=== PATIENT | female | born 1970 | race Caucasian/White ===

== ENCOUNTER 2018-08-27 12:15 | Outpatient (REF) | payer OTHER, SELFPAY ==
[2018-08-28 13:15] LABS: Chlamydia Result Negative; GC Result Negative; Specimen Description URINE
== END 2018-08-27 12:35 ==
LOC: NCHCN 12:15
PROVIDERS: Visit Provider Nurse Practitioner
DX: Z72.51 High risk heterosexual behavior (principal); Z11.3 Encounter for screening for infections with a predominantly sexual mode of transmission
CPT/HCPCS: 87491; 87591

== ENCOUNTER 2018-12-07 07:21 | Day surgery (SDC) | payer OTHER, SELFPAY ==
[2018-12-07 07:23] VITALS: BP 116/72; PULSE 53; RESP 16; TEMP 35.8; O2SAT 100
[2018-12-07] MEDS: Lactated Ringers 1,000 ML 80 ML IV ×2 (07:55→11:16)
[2018-12-07] MEDS: ceFAZolin 1 GM/50 ML BAG IVPB (08:59)
[2018-12-07] MEDS: Bupivacaine 0.5% Pres-Free 30 ML VIAL (09:08)
[2018-12-07] MEDS: Lidocaine 1% Pres-Free 5 ML VIAL (09:08)
--- NOTE | 2018-12-07 09:34 | SOFT_PTH ---
PATIENT: DELIA BEAR LOC: DEV U#:[id number] AGE/SX: 48/F ROOM: RE12/07/[address]: Kirit Kirkland : 1970 BED: DIS: 12/07/2018 SPEC #: [id number] RECD: 12/07/18 12:56 STATUS: SHARRI ZEPEDA #: [id number] ELSA: 12/07/18 09:[address]: Kirit Kirkland DEPT: Surgical Specimen RECD BY: Barbara Oreilly ENTERED: 12/07/18 12:57 SP TYPE: SOFT OTHR DR: Mayelin Hammond Tissues: 1 - SOFT TISSUE MASS(BX SIMPLE) Procedures: GROSS AND MICRO LEVEL 5 Comments: [id number]
[2018-12-07] MEDS: Dexamethasone 4 MG/ML VIAL (10:04)
--- NOTE | 2018-12-07 10:18 | W.PM.DSUDISC ---
Discharge Plan Disposition Patient Disposition: HOME Condition: Good Discharge Details Reason For Visit: EXCISION MASS (L) Attending Provider: Kirit Kirkland Primary Care Provider: Mayelin Hammond Home Meds and New Rx's Prescriptions: Continued sertraline 100 mg Tablet 100 mg PO DAILY RF: 0 Centrum Women 18-400 mg-mcg Tablet 1 tab PO DAILY RF: 0 Discharge Instructions Stand Alone Forms: Isael's Instructions-DSU, Tashi Jones (DSU) Activity:: Activity as Tolerated Remove Dressings/Wound Care:: Do Not Remove Shower/Bathe:: Cover Diet:: As Tolerated Discharge Orders Discharge Orders: Discharge Order (Routine); Ordered 12/07/18 Ordered By: Kirit Kirkland Other Ambulatory Orders: Ibuprofen (Routine) Location: Laboratory Nonpatient Ordered By: Kirit Kirkland DS: Diagnosis Discharge Diagnosis (1) Bunionette of left foot: Status: Acute
[2018-12-07 11:23] VITALS: BP 99/58; PULSE 53; RESP 18; TEMP 36.4; O2SAT 100
--- NOTE | 2018-12-07 12:07 | ROE_ITS ---
DATE OF PROCEDURE: December 07, 2018 PREOPERATIVE DIAGNOSES: 1. Soft tissue mass fifth MPJ region of the left foot. 2. Bunionette deformity left foot. POSTOPERATIVE DIAGNOSES: Same. PROCEDURE: 1. Excision soft tissue mass fifth MPJ left foot. 2. Exostectomy fifth metatarsal head. SURGEON: Kirit Kirkland D.P.M. ANESTHESIA: OPERATIVE INDICATIONS: 48-year-old female with increasing pain associated with chronic enlargement s urrounding the fifth MPJ with exostosis formation noted over the fifth metatarsal head. The mass is very large, made it difficult to wear shoes, ambulate, interfering with daily activities and she is o pting for surgical intervention. She is fully aware of the potential for pain, scarring, infection, recurrence of the mass, numbness or vascular embarrassment to the fifth toe. All questions have been answered. Informed consent has been obtained. No promises are made to the final outcome of surgery . REPORT OF OPERATION: Linda was brought to the operative suite, placed in the supine position, where the left foot is prepped and draped in the usual sterile podiatric fashion. Anesthesia being obtaine d, the left foot was exsanguinated; a well-padded ankle tourniquet inflated 250 mmHg. Attention was directed to the lateral aspect of the fifth MPJ where a 3 cm incision was made starting at the base of the proximal phalanx and extending proximally. The incision was deepened in controll ed depth fashion; hemostasis acquired through electrocautery. The soft tissue mass was fairly adhere nt to the deep surface of the skin. With blunt dissection, I removed the mass from the overlying ski n structures. The mass was generally solid with some small areas that appeared to be slightly gelati nous. It was non-pulsatile. The mass was dissected distally and dorsally and released from the kristine rounding tissues. It was retracted out of the wound and it's noted to be coming from the inferior si de of the fifth metatarsal proximal to the joint. Dissection was further carried down proximally, re leasing the mass; stalk had a translucent appearance; unclear if it was coming from a tendon sheath o r a nerve tissue; nevertheless this was dissected as proximal as I could get it. It was severed and removed from the wound. It was sent to Pathology. Inspection of the base of the wound and periphery failed to reveal any additional pathologic structures. Attention was now directed to the fifth MPJ. The joint was incised along its dorsal lateral edge; th e joint capsule reflected. The fifth metatarsal head was inspected. Hypertrophy along the lateral a spect was appreciated, consistent with preoperative findings of exostosis. With power instrumentatio n the lateral portion of the fifth metatarsal head was resected. All rough and bony edges were raspe d smooth. Copious irrigation was performed. There was no pathology found at this level. The joint capsule was repaired with simple interrupted suture #3-0 Vicryl. The deep layers were repaired with simple interrupted suture #3-0 Vicryl. The subcuticular layer was repaired with simple interrupted s uture #4-0 Vicryl. There was a significant amount of redundant skin. Allis clamps were applied to t he superior or dorsal portion of the skin, which would be the thinner layer of skin, and I resected a pproximately 3 to 4 mm of skin. This was subsequently brought back together and the skin edges were relaxed and in good position. The skin was closed with a combination of simple interrupted suture wi th horizontal mattress suture. Four milligrams of Dexamethasone Phosphate was then infused deeply in to the wound. Xeroform, gauze fluff compression dressings reapplied. The tourniquet was released at 53 minutes with vascularity returning immediately to all toes. Anesthesia was eventually reversed. Linda left the OR with vital signs stable, vascular status intact. Sharp and sponge counts were cor rect. She will be followed by me in the office next week. The soft tissue was sent to Pathology for final determination of etiology.
== END 2018-12-07 12:10 | disposition home or self-care (01) ==
PROVIDERS: Visit Provider Podiatrist
PROC: (CPT 28288; principal; 2018-12-07 09:30)
DX: M65.9 Synovitis and tenosynovitis, unspecified (principal); M21.622 Bunionette of left foot
CPT/HCPCS: 28288; 28104; 81025; 88304; 88307; J0690; J1100; J2250

== ENCOUNTER 2019-02-11 10:29 | Outpatient (REF) | payer OTHER, SELFPAY ==
[2019-02-11 13:44] LABS: Calculated LDL 96; Cholesterol 169 mg/dL (50-200); HDL Cholesterol 61 mg/dL (40-60); Triglyceride 63 mg/dL (30-150)
[2019-02-12 10:10] LABS: HIV-1/2 Ag & Ab Screen Negative (NEGAT); Hep B Core Antibody Negative (NEGAT); Hepatitis B Surface Ag Negative (NEGAT); Hepatitis C Ab w Rflx HCV PCR Negative (NEGAT)
[2019-02-12 10:27] LABS: HBs Antibody, Quant >1000.0 mIU/mL; Hepatitis B Surface Ab Positive
[2019-02-12 12:46] LABS: Syphilis Serology (RPR) Negative (Negative)
== END 2019-02-11 10:49 ==
LOC: NCHCN 10:29
PROVIDERS: Nurse Practitioner Family; PCP Nurse Practitioner; Visit Provider Nurse Practitioner
DX: Z72.51 High risk heterosexual behavior (principal); Z11.59 Encounter for screening for other viral diseases; Z11.4 Encounter for screening for human immunodeficiency virus [HIV]; Z00.00 Encounter for general adult medical examination without abnormal findings; Z13.220 Encounter for screening for lipoid disorders
CPT/HCPCS: 80061; 83721; 86704; 86706; 86803; 87340; 87389; 86592

== ENCOUNTER 2019-07-19 08:01 | Day surgery (SDC) | payer OTHER, SELFPAY ==
[2019-07-19 08:21] VITALS: BP 110/71; PULSE 53; RESP 16; TEMP 36.4; O2SAT 100
[2019-07-19] MEDS: Lactated Ringers 1,000 ML 80 ML IV (08:40)
[2019-07-19] MEDS: ceFAZolin 1 GM/50 ML BAG IVPB (09:39)
[2019-07-19] MEDS: Bupivacaine 0.5% Pres-Free 30 ML VIAL (09:44)
[2019-07-19] MEDS: Lidocaine 1% Multi-Dose 50 ML VIAL (09:44)
--- NOTE | 2019-07-19 10:13 | PDOC.DSDIS_ITS ---
Discharge Plan Disposition Patient Disposition: HOME Condition: Good Discharge Details Reason For Visit: correction bunionette right foot Attending Provider: Kirit Kirkland Primary Care Provider: Alba Bejarano Home Meds and New Rx's Prescriptions: No Action sertraline 100 mg Tablet 100 mg PO DAILY RF: 0 Centrum Women 18-400 mg-mcg Tablet 1 tab PO DAILY RF: 0 Discharge Instructions Activity:: Activity as Tolerated Remove Dressings/Wound Care:: Do Not Remove Shower/Bathe:: Cover Diet:: Normal Diet Discharge Orders Discharge Orders: Discharge Order (Routine); Ordered 07/19/19 Ordered By: Kirit Kirkland DS: Diagnosis Discharge Diagnosis (1) Bunionette of right foot: Status: Acute
--- NOTE | 2019-07-19 10:14 | PDOC.DSDIS_ITS ---
Discharge Plan Disposition Patient Disposition: HOME Condition: Good Discharge Details Reason For Visit: correction bunionette right foot Attending Provider: Kirit Kirkland Primary Care Provider: Alba Bejarano Home Meds and New Rx's Prescriptions: New ibuprofen 600 mg tablet 600 mg PO Q6H PRN (Reason: post op pain) Qty: 30 RF: 0 hydrocodone-acetaminophen [[place]] 5-325 mg tablet 1 tab PO Q6H PRN (Reason: pain) Qty: 7 RF: 0 Continued sertraline 100 mg Tablet 100 mg PO DAILY RF: 0 Centrum Women 18-400 mg-mcg Tablet 1 tab PO DAILY RF: 0 Discharge Instructions Activity:: Activity as Tolerated Remove Dressings/Wound Care:: Do Not Remove Shower/Bathe:: Cover Diet:: Normal Diet Discharge Orders Discharge Orders: Discharge Order (Routine); Ordered 07/19/19 Ordered By: Kirit Kirkland DS: Diagnosis Discharge Diagnosis (1) Bunionette of right foot: Status: Acute
[2019-07-19 11:05] VITALS: BP 96/66; PULSE 53; RESP 16; TEMP 36.3; O2SAT 94
--- NOTE | 2019-07-19 11:12 | ROE_ITS ---
DATE OF PROCEDURE: July 19, 2019 PREOPERATIVE DIAGNOSIS: Symptomatic right talar bunion deformity. POSTOPERATIVE DIAGNOSIS: Same. PROCEDURE: Partial right fifth metatarsal head resection. SURGEON: Gus FloresPNadia. ANESTHESIA: General Anesthesia supplemented with 10 cc's of a 50:50 mixture 1% Lidocaine plain, 0.5% Marcaine plain. OPERATIVE INDICATIONS: 48-year-old white female with chronic pain associated with enlargement in her right fifth metatarsal head phalangeal joint, which has not responded to wider shoes, paddings, anti -inflammatories. She is opting for surgical correction. Risks and complications have been reviewed, including the potential for pain, scarring, infection, wound dehiscence, recurrence of deformity pot entially requiring additional procedures. Informed consent has been obtained. No promises made to t he final outcome of surgery. REPORT OF OPERATION: Linda is brought to the operative suite and placed in the supine position where the right foot is prepped and draped in the usual sterile podiatric fashion. A time-out was perform ed. Attention was directed to the right foot, which was exsanguinated, a well-padded ankle tourniquet inf lated 250 mmHg. Attention was directed to the right fifth MPJ where a 2 cm curvilinear incision was made over the fifth metatarsal head dorsal laterally. The incision was deepened in controlled depth fashion; hemostasis acquired with electrocautery. Once the skin was opened, she had a bursal sac ove r the lateral side of the joint; this was dissected and removed from the wound. The joint capsule wa s then incised dorsal laterally and reflected medially and laterally. The lateral portion of the fif th metatarsal head was quite enlarged. With osteotome and mallet I resected the overgrowth region of the fifth metatarsal head; this was from where the lateral aspect of the base of the proximal phalan x contacted the head and laterally. Once the bone was resected, all roughened edges were rasped smoo th. Some additional fine-tuning was performed with additional rasping and a little bit of bone resec tion from the plantar lateral side of the fifth met head. At conclusion the enlargement was resected and good anatomic alignments noted. Copious irrigation was performed. The joint capsule was repair ed with simple interrupted suture #3-0 Vicryl. The skin was then coapted with a combination of simpl e and horizontal mattress suture #4-0 nylon. Four milligrams of dexamethasone phosphate was infused deeply into the wound. Xeroform, fluff gauze compression dressings were applied. The tourniquet was released at seventeen minutes, vascularity returning immediately to all toes. Linda left the OR wit h vital signs stable, vascular status intact. Sharp and sponge counts were correct. She will be fol lowed by me in the office next week. cc: Alba Bejarano APRN
== END 2019-07-19 12:13 | disposition home or self-care (01) ==
PROVIDERS: PCP Nurse Practitioner Family; Visit Provider Podiatrist
PROC: (CPT 28288; principal; 2019-07-19 09:15)
DX: M21.621 Bunionette of right foot (principal)
CPT/HCPCS: 28110; J0690

== ENCOUNTER 2019-10-29 16:28 | Outpatient (CLI) | payer OTHER, SELFPAY ==
--- NOTE | 2019-10-29 | DI.RAD_ITS ---
EXAM: XR RIBS RT W PA AND LAT CHEST CLINICAL HISTORY: CHEST WALL PAIN, R07.89. TECHNIQUE: 2D digital imaging was performed. COMPARISON: No exams were available for comparison FINDINGS: LUNGS: Clear. No pleural abnormality seen. HEART: Normal. MEDIASTINUM: Normal. OTHER FINDINGS:Normal. BONE:Normal. IMPRESSION: No acute pulmonary findings.
== END 2019-10-29 16:48 ==
PROVIDERS: PCP Nurse Practitioner Family; Visit Provider Nurse Practitioner Family
DX: R07.89 Other chest pain (principal)
CPT/HCPCS: 71046; 71100

== ENCOUNTER 2020-04-07 17:26 | Outpatient (REF) | payer OTHER, SELFPAY ==
[2020-04-07 21:53] LABS: Clarity Cloudy; Mononuclear Cells 97 %; Nucleated Cells 3331 /MM3 (0-0); Polynuclear Cells 3 %; Source R FOOT
== END 2020-04-07 17:46 ==
LOC: LBN 17:26
PROVIDERS: PCP Nurse Practitioner Family; Visit Provider Podiatrist
DX: L02.619 Cutaneous abscess of unspecified foot (principal)
CPT/HCPCS: 87070; 87205; 89051

== ENCOUNTER 2020-08-20 10:37 | Outpatient (REF) | payer OTHER, SELFPAY ==
[2020-08-20 21:25] LABS: Anion Gap 5.9 mmol/L (3-11); BUN 9 mg/dL (7-18); CO2 27.1 mmol/L (21.0-32.0); CREATININE 0.88 mg/dL (0.55-1.02); Calcium 8.8 mg/dL (8.5-10.1); Chloride 104 mmol/L (98-107); Glucose 90 mg/dL (74-106); Magnesium 1.9 mg/dL (1.8-2.4); Potassium 4.7 mmol/L (3.5-5.1); Sodium 137 mmol/L (136-145); TSH (W/Ref FT4) 1.56 uIU/mL (0.36-3.74)
== END 2020-08-20 10:57 ==
LOC: NCHCN 10:37
PROVIDERS: PCP Nurse Practitioner Family; Visit Provider Nurse Practitioner Family
DX: K30 Functional dyspepsia (principal); R00.2 Palpitations; R20.2 Paresthesia of skin; F41.8 Other specified anxiety disorders
CPT/HCPCS: 80048; 83735; 84443

== ENCOUNTER 2020-12-25 06:23 | Day surgery (SDC) | payer OTHER, SELFPAY ==
[2020-12-25 06:33] VITALS: BP 110/79; PULSE 64; RESP 20; TEMP 36.8; O2SAT 98
[2020-12-25] MEDS: Lactated Ringers 1,000 ML 80 ML IV (07:00)
[2020-12-25] MEDS: Bupivacaine 0.5% Pres-Free 30 ML VIAL (07:34)
[2020-12-25] MEDS: ceFAZolin 1 GM/50 ML BAG IVPB (07:35)
[2020-12-25] MEDS: Lidocaine 1% Multi-Dose 50 ML VIAL (07:42)
--- NOTE | 2020-12-25 08:16 | SOFT_PTH ---
PATIENT: DELIA BEAR LOC: DEV U#:[id number] AGE/SX: 50/F ROOM: RE12/25/[address]: Kirit Kirkland : 1970 BED: DIS: 12/25/2020 SPEC #: [id number] RECD: 12/25/20 12:21 STATUS: SHARRI ZEPEDA #: [id number] ELSA: 12/25/20 08:[address]: Kirit Kirkland DEPT: Surgical Specimen RECD BY: Barbara Oreilly ENTERED: 12/25/20 12:21 SP TYPE: SOFT OTHR DR: Alba Bejarano Tissues: 1 - SOFT TISSUE [facility] Procedures: GROSS AND MICRO LEVEL 4 SPECIAL STAIN 1 Comments: [id number]
--- NOTE | 2020-12-25 08:40 | PDOC.DSDIS_ITS ---
Discharge Plan Disposition Patient Disposition: HOME Condition: Good Discharge Details Reason For Visit: Excision soft tissue mass right fifth MPJ Attending Provider: Kirit Kirkland Primary Care Provider: Alba Bejarano Home Meds and New Rx's Prescriptions: New hydrocodone-acetaminophen 5-325 mg tablet 1 tab PO Q6H PRN (Reason: pain) Qty: 9 RF: 0 ibuprofen 600 mg tablet 600 mg PO Q6H PRN (Reason: pain and inflamation) Qty: 60 RF: 0 Continued ibuprofen 600 mg tablet 600 mg PO Q6H PRN (Reason: post op pain) Qty: 30 RF: 0 hydrocodone-acetaminophen [[place]] 5-325 mg tablet 1 tab PO Q6H PRN (Reason: pain) Qty: 7 RF: 0 sertraline 100 mg Tablet 100 mg PO DAILY RF: 0 Centrum Women 18-400 mg-mcg Tablet 1 tab PO DAILY RF: 0 ginkgo biloba 60 mg Tablet RF: 0 acetaminophen 500 mg Capsule PRNRF: 0 Discharge Instructions Activity:: Elevate Remove Dressings/Wound Care:: Do Not Remove Shower/Bathe:: Cover Diet:: Normal Diet Discharge Orders Discharge Orders: Discharge Order (Routine); Ordered 12/25/20 Ordered By: Kirit Kirkland DS: Diagnosis Discharge Diagnosis (1) Mass of soft tissue of foot: Status: Acute
--- NOTE | 2020-12-25 08:46 | W.PM.OP ---
Date of service: 12/25/20 Time of Service: 08:46 Operative Note Operative Note DATE OF PROCEDURE: 12/25/20 PRE-OP DIAGNOSIS: Soft tissue mass right lateral foot, fifth MPJ region POST-OP DIAGNOSIS: same 50-year-old white female with recurrent soft tissue mass over the lateral aspect of the right fifth MPJ. Mass is been slowly enlarging causing discomfort in shoe gear weightbearing interfering with comfortable ambulation. She understands potential risk and complications of surgery to include recurrence, pain, scarring, neurologic injury, the potential for additional interventional surgeries. No promises made final outcome of surgery. PROCEDURE: Resection soft tissue mass lateral right foot SURGEON: Kirit Kirkland ANESTHESIA TYPE: Local By Surgeon Refer to Anesthesia Record ESTIMATED BLOOD LOSS: 3 PATHOLOGY: other TOURNIQUET TIME: 0 COMPLICATIONS: None Patient was transported to: same day Patient's condition: stable Findings: Multi lobular, firm mass excised superficial to the fifth MPJ region with the stork appearing to come from a more plant the lateral anatomic position from the joint Procedure Description: Linda was brought to the operative suite placed in the supine position with the right foot was anesthetized with 9 cc of a 50: 50 mixture 1% lidocaine with epinephrine, 0.5% Marcaine plain. An additional 5 cc of 1% lidocaine plain was infused before the start of the procedure. Timeout was performed for safe surgery per protocol. Having achieved anesthesia the right foot was prepped and draped in the usual sterile podiatric fashion. Attention was directed to the lateral aspect of the right foot at the fifth MPJ region where a large soft tissue mass was easily palpable. The original cicatrix was reopened and dissection performed via sharp and blunt with care taken to separate soft tissue from the mass. Moderate adhesions were appreciated but these were dissected well off of the mass. The mass was identified laterally dissected proximally laterally lateral distally and it was noted to be coming primarily from the proximal lateral plantar aspect of the incision. With baby Metzenbaum's the lesion was dissected free of the surrounding tissue. This felt more solid than a ganglionic mass. It appeared multi lobular in its firmness. The tissue was dissected from distal to proximal and I removed the loose Francisco lesion from the lateral plantar aspect of the incision and sent it off to pathology the wound was inspected and no additional pathologic findings identified. The wound was copiously irrigated with normal saline. The wound was closed with 3-0 Vicryl closing the subcutaneous layer and the skin was closed with continuous running suture of 4-0 Monocryl. A single horizontal mattress suture was also applied along the proximal aspect of the incision. 4 mg of dexamethasone phosphate was infused deeply proximally at the incision. Xeroform fluffs Kerlix roll x2 applied. Linda left the OR with vital signs stable vascular status intact sharp and sponge counts were correct. Should be followed by myself in the office next week.
== END 2020-12-25 09:25 | disposition home or self-care (01) ==
PROVIDERS: PCP Nurse Practitioner Family; Visit Provider Podiatrist
PROC: (CPT 28039; principal; 2020-12-25 07:30)
DX: L92.8 Other granulomatous disorders of the skin and subcutaneous tissue (principal); M65.871 Other synovitis and tenosynovitis, right ankle and foot
CPT/HCPCS: 28039; 88305; 88304; 88312; J0690

== ENCOUNTER 2021-02-18 16:47 | Outpatient (REF) | payer OTHER, SELFPAY ==
--- NOTE | 2021-02-18 16:00 | PAPFT_PTH ---
PATIENT: DELIA BEAR [facility] U[id number] AGE/SX: 50/F ROOM: RE02/18/[address]: Alba Bejarano : 1970 BED: DIS: 02/18/2021 SPEC #: [id number] RECD: 02/19/21 13:07 STATUS: SHARRI ZEPEDA #: [id number] ELSA: 02/18/21 16:[address]: Alba Bejarano DEPT: [facility] Cytology RECD BY: Barbara Oreilly Tissues: 1 - CX/ENDOCX FOR PAP SMEARS Procedures: PAP THIN PREP/UVM Screening HPV DNA PROBE Comments: [id number]
== END 2021-02-18 16:48 | disposition home or self-care (01) ==
LOC: NCHCN 16:47
PROVIDERS: PCP Nurse Practitioner Family; Visit Provider Nurse Practitioner Family
DX: Z00.00 Encounter for general adult medical examination without abnormal findings (principal); Z12.4 Encounter for screening for malignant neoplasm of cervix; Z01.419 Encounter for gynecological examination (general) (routine) without abnormal findings; Z11.51 Encounter for screening for human papillomavirus (HPV)
CPT/HCPCS: 88142; 87624